=== PATIENT | female | born 1995 | race Hispanic/Latino ===

== ENCOUNTER 2019-09-29 09:40 | Emergency (ER) | payer OTHER ==
[~2019-09-29] VITALS: Ht 177.8 cm; Wt 94.3 kg
--- OUTSIDE RECORDS SUMMARY | 2019-09-29 09:44 | XMS REPORT | Clinical Summary ---
Author Author [facility] Organization [facility] Address Unknown Phone Unavailable Care Team Providers Care Skidder Runner Name Role Phone Asked, No Pcp PCP Unavailable Allergies No Known Allergies Medications No known medications Active Problems No known active problems Immunizations Name Administration Dates Next Due FLUCELVAX QUAD PF 05/03/2018 () Social History Date Tobacco Use Types Packs/Day Years Used Never Smoker Smokeless Tobacco: Never Used Drinks/Week oz/Week Comments Alcohol Use No Alcohol Habits Answer Date Recorded How often do you have a drink containing alcohol? Never 05/02/2018 How many drinks containing alcohol do you have on No t asked a typical day when you are drinking? How often do you have six or more drinks on one Not asked occasion? Sex Assigned at Date Recorded Not on file Industry Job Start Date Occupation Not on file Not on file Not on file Travel End Travel History Travel Start No recent travel history available. 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
[2019-09-29] MEDS ORDERED: METHYLPREDNISOLONE SOD SUCC 125 MG/2ML VIAL IV ONE (10:00)
[2019-09-29] MEDS ORDERED: ALBUTEROL/IPRATROPIUM 3 ML NEB NEB ONE (10:00)
--- NOTE | 2019-09-29 10:08 | Emergency Department Note ---
History of Present Illnes History of Present Illness Chief Complaint: Respiratory History of Present Illness This is a 23 year old female complaining of SOB and cough for 1 week. Historian: Patient Arrival Mode: Car Onset (how long ago): day(s) Radiation: non-radiation Severity: moderate Onset quality: gradual Duration (how long): day(s) Timing of current episode: constant Progression: worsening Past Medical/Family History Physician Review I have reviewed the patient's past medical and family history. Any updates have been documented here. Past Medical History Recent Fever: No Clinical Suspicion of Infectio: No New/Unexplained Change in Ment: No Past Medical History: Asthma Past Surgical History: Appendectomy, T&A Social History Smoking Cessation: Never Smoker Counseling Performed: No Alcohol Use: None Family History Family history of heart diseas: No Other Last Tetanus: UNKNOWN Review of Systems Review of Systems Constitutional: no symptoms EENTM: no symptoms Cardiovascular: no symptoms Respiratory: as per HPI, cough, dyspnea, wheezing; chest congestion, excessive phlegm production, pain on inspiration, dyspnea on exertion Gastrointestinal: no symptoms Genitourinary: no symptoms Musculoskeletal: no symptoms Integumentary: no symptoms Neurological: no symptoms Psychological: no symptoms Endocrine: no symptoms Hematological/Lymphatic: no symptoms Review of other systems All other systems reviewed and negative. Physical Exam Related Data Allergies: Coded Allergies: No Known Allergies (Unverified , 09/29/19) Triage Vital Signs Vital Signs Date Time Temp Pulse Resp B/P (MAP) Pulse Ox O2 Delivery O2 Flow Rate FiO2 09/29/19 09:44 98.7 83 22 163/98 96 Vital signs reviewed: Yes Physical Exam CONSTITUTIONAL Constitutional: well-developed, well-nourished HENT HENT: normocephalic, atraumatic, oropharynx clear/moist, nose normal HENT - Ear: left ext ear normal, right ext ear normal EYES Eyes: PERRL, conjunctivae normal NECK Neck: ROM normal PULMONARY Pulmonary: effort normal, breath sounds normal, other (wheezes diffusely worse on exertion, mild tachypnea when speaking, able to speak in full sentences) CARDIOVASCULAR Cardiovascular: regular rhythm, heart sounds normal, capillary refill normal, normal rate GASTROINTESTINAL Abdominal: soft, nontender, bowel sounds normal GENITOURINARY Genitourinary: exam deferred SKIN Skin: warm, dry MUSCULOSKELETAL Musculoskeletal: ROM normal NEUROLOGICAL Neurological: alert, oriented x 3, no gross motor or sensory deficits PSYCHOLOGICAL Psychiatric/behavioral: mood/affect normal, judgement normal Results Laboratory Laboratory Laboratory Tests Test 09/29/19 10:03 White Blood Count 9.61 x10e3/uL (4.8-10.8) Red Blood Count 4.63 x10e6/uL (3.6-5.1) Hemoglobin 13.7 g/dL (12.0-16.0) Hematocrit 40.8 % (34.2-44.1) Mean Corpuscular Volume 88.1 fL (81-99) Mean Corpuscular Hemoglobin 29.6 pg (28-32) Mean Corpuscular Hemoglobin Concent 33.6 g/dL (31-35) Red Cell Distribution Width 12.9 % (11.7-14.4) Platelet Count 245 x10e3/uL (140-360) Neutrophils (%) (Auto) 56.3 % (38.7-80.0) Lymphocytes (%) (Auto) 28.9 % (18.0-39.1) Monocytes (%) (Auto) 7.6 % (4.4-11.3) Eosinophils (%) (Auto) 6.2 % (0.0-6.0) Basophils (%) (Auto) 0.7 % (0.0-1.0) Neutrophils # (Auto) 5.4 (2.1-6.9) Lymphocytes # (Auto) 2.8 (1.0-3.2) Monocytes # (Auto) 0.7 (0.2-0.8) Eosinophils # (Auto) 0.6 (0.0-0.4) Basophils # (Auto) 0.1 (0.0-0.1) Absolute Immature Granulocyte (auto 0.03 x10e3/uL (0-0.1) Sodium Level 139 mmol/L (136-145) Potassium Level 3.9 mmol/L (3.5-5.1) Chloride Level 105 mmol/L (98-107) Carbon Dioxide Level 24 mmol/L (22-29) Anion Gap 13.9 mmol/L (8-16) Blood Urea Nitrogen 11 mg/dL (7-26) Creatinine 0.70 mg/dL (0.57-1.11) Estimat Glomerular Filtration Rate > 60 ML/MIN (60-) BUN/Creatinine Ratio 16 (6-25) Glucose Level 89 mg/dL (74-118) Calcium Level 9.6 mg/dL (8.4-10.2) Total Bilirubin 0.5 mg/dL (0.2-1.2) Aspartate Amino Transf (AST/SGOT) 21 IU/L (5-34) Alanine Aminotransferase (ALT/SGPT) 26 IU/L (0-55) Alkaline Phosphatase 96 IU/L (40-150) Total Protein 8.8 g/dL (6.5-8.1) Albumin 4.2 g/dL (3.5-5.0) Globulin 4.6 g/dL (2.3-3.5) Albumin/Globulin Ratio 0.9 (0.8-2.0) Lab results reviewed: Yes Imaging Imaging results reviewed: Yes Impressions IMPRESSION: No focal pneumonia or pulmonary edema. Critical Care Time Subsequent provider I assumed direction of critical care for this patient from another provider of my specialty. Assessment & Plan Assessment & Plan Problems: (1) Acute asthma exacerbation Assessment & Plan -3 duo nebs -3 albuterols -solumedrol -cbc, cmp, CXR Reassessment Reassessment time: 10:53 (Pt re-evaluated after albuterol/atroven- reports improvements, audible wheezes still appreciated. Will continue 2 more duo neb treatments. ) Reassessment 12:00 Pt noted to have inspiratory wheezes, reports feeling better 1:30: Pt's saturation 98% on exertion, wheezing still audible on auscultation 2:15: Pt still with audible wheezes, will given albuterol and continue to monitor 3:30: Pt's with scant wheezes on inspiration, ambulatory without evidence of hypoxia. Pt stable for D/C home, monitored in the ED with multiple re- evaluations. Pt given albuterol and steroids at time of D/C- pulmonary f/u also given. Last Vital Signs Date Time Temp Pulse Resp B/P (MAP) Pulse Ox O2 Delivery O2 Flow Rate FiO2 09/29/19 09:44 98.7 83 22 163/98 96 Home Meds Active Scripts Albuterol Sulf* (PROAIR HFA INHALER*) 8.5 Gm Inh, 2 PUMP INH Q6HR PRN for WHEEZING, #1 Prov:JULIA SILVA, 09/29/19 Prednisone (PREDNISONE) 20 Mg Tab, 40 MG PO DAILY, #5 TAB Prov:JULIA SILVA DO 09/29/19 Medications in the ED Methylprednisolone Sodium Succinate 125 mg ONCE ONCE IV Last administered on 09/29/19at 10:19; Admin Dose 125 MG; Start 09/29/19 at 10:00; Stop 09/29/19 at 10:01; Status DC Albuterol/ Ipratropium 9 ml ONCE ONCE NEB Last administered on 09/29/19at 10:15; Admin Dose 9 ML; Start 09/29/19 at 10:00; Stop 09/29/19 at 10:01; Status DC Albuterol/ Ipratropium 9 ml STK-MED ONCE .ROUTE ; Start 09/29/19 at 11:08; Stop 09/29/19 at 11:03; Status DC Albuterol Sulfate 3 ml NOW NEB ; Start 09/29/19 at 14:47; Stop 09/29/19 at 15:59 Albuterol/ Ipratropium 3 ml STK-MED ONCE .ROUTE ; Start 09/29/19 at 14:59; Stop 09/29/19 at 14:54; Status DC JULIA SILVA DO September 29, 2019 10:08
[2019-09-29 10:20] LABS: BASOPHILS # (AUTO) 0.1 (0.0-0.1); BASOPHILS % 0.7 % (0.0-1.0); EOSINOPHILS # (AUTO) 0.6 (0.0-0.4); EOSINOPHILS % 6.2 % (0.0-6.0); HEMATOCRIT 40.8 % (34.2-44.1); HEMOGLOBIN 13.7 g/dL (12.0-16.0); LYMPHOCYTES # (AUTO) 2.8 (1.0-3.2); LYMPHOCYTES % 28.9 % (18.0-39.1); MEAN CORPUSCULAR HEMOGLOBIN 29.6 pg (28-32); MEAN CORPUSCULAR HGB CONC 33.6 g/dL (31-35); MEAN CORPUSCULAR VOLUME 88.1 fL (81-99); MONOCYTES # (AUTO) 0.7 (0.2-0.8); MONOCYTES % 7.6 % (4.4-11.3); NEUTROPHILS # (AUTO) 5.4 (2.1-6.9); NEUTROPHILS % 56.3 % (38.7-80.0); PLATELET COUNT 245 x10e3/uL (140-360); RED BLOOD COUNT 4.63 x10e6/uL (3.6-5.1); RED CELL DISTRIBUTION WIDTH 12.9 % (11.7-14.4)
[2019-09-29 10:44] LABS: ALANINE AMINOTRANSFERASE 26 IU/L (0-55); ALBUMIN 4.2 g/dL (3.5-5.0); ALBUMIN/GLOBULIN RATIO 0.9 (0.8-2.0); ALKALINE PHOSPHATASE 96 IU/L (40-150); ANION GAP 13.9 mmol/L (8-16); BLOOD UREA NITROGEN 11 mg/dL (7-26); BUN/CREATININE RATIO 16 (6-25); CALCIUM 9.6 mg/dL (8.4-10.2); CARBON DIOXIDE 24 mmol/L (22-29); CHLORIDE 105 mmol/L (98-107); EST GLOMERULAR FILTRATION RATE > 60 ML/MIN (60-); GLUCOSE 89 mg/dL (74-118); POTASSIUM 3.9 mmol/L (3.5-5.1); SODIUM 139 mmol/L (136-145)
[2019-09-29] MEDS ORDERED: ALBUTEROL/IPRATROPIUM 3 ML NEB ONE ×2 (11:08→14:59)
--- NOTE | 2019-09-29 11:14 | Diagnostic Imaging Report ---
EXAMINATION: CHEST SINGLE (PORTABLE) INDICATION: Cough COMPARISON: None FINDINGS: LINES/TUBES:EKG leads overlie the chest. LUNGS:The lungs are well-inflated. No focal consolidation or pulmonary edema. PLEURA:No pleural effusion or pneumothorax. MEDIASTINUM:The cardiomediastinal silhouette appears normal in size and shape. BONES/SOFT TISSUES:No acute osseous injury. ABDOMEN:No free air under the diaphragm. IMPRESSION: No focal pneumonia or pulmonary edema. Signed by: Guillermo Ramos MD on 09/29/2019 11:11 AM
--- NOTE | 2019-09-29 14:00 | NUR ---
Patient was able to ambulate in place for 60 seconds without a drop in oxygen saturation or increase in shortness of breath. Patient subjectively feeling better and objectively her lungs sound much more clear with decreased wheezing throughout all auscultated lung arora
[2019-09-29] MEDS ORDERED: ALBUTEROL SULF 0.083% NEB SOLN 3 ML NEB NEB NR (14:47)
[2019-09-29] MEDS ORDERED: PROAIR HFA INH8.5 GM INH (15:25)
[2019-09-29] MEDS ORDERED: PREDNISONE20 MG PO (15:25)
== END 2019-09-29 15:47 | disposition home or self-care (01) ==
LOC: ER 09:40
DX: R06.02 Shortness of breath (principal); R05 Cough; J45.901 Unspecified asthma with (acute) exacerbation
CPT/HCPCS: 36415; 71045; 80053; 85025; 99284; J2930